=== PATIENT | male | born 1980 | race Caucasian/White ===

== ENCOUNTER 2018-05-22 09:13 | Emergency (ER) | payer OTHER ==
[2018-05-22] MEDS: DIPHTH/TET/ACEL PERTUSS (ADULT) 0.5 ML VIAL IM* (10:16)
== END 2018-05-22 11:14 | disposition home or self-care (01) ==
LOC: FTE 09:13
DX: L97.319 Non-pressure chronic ulcer of right ankle with unspecified severity (principal); F17.210 Nicotine dependence, cigarettes, uncomplicated; Z21 Asymptomatic human immunodeficiency virus [HIV] infection status; Z23 Encounter for immunization
CPT/HCPCS: 73610; 73610-RT; 90471; 90715; 99283-25